=== PATIENT | male | born 1955 | race Caucasian/White ===

== ENCOUNTER 2017-01-27 09:13 | Inpatient (IN) | payer MEDICAID ==
[~2017-01-27] VITALS: Ht 172.7 cm; Wt 61.2 kg
--- NOTE | 2017-01-27 09:13 | NUR ---
PT BIBA TO BED 3 AT 0907
[2017-01-27 09:16] VITALS: BP 156/108
--- NOTE | 2017-01-27 09:20 | NUR ---
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 PT STATES . DENIES N/V/D; SKIN IS PINK/WARM/DRY; AAOX4 WITH EVEN AND STEADY GAIT; LUNGS CLEAR BL; HR EVEN AND REGULAR; PT DENIES ANY FEVER, CP, SOB, OR COUGH AT THIS TIME; PATIENT STATES PAIN OF 10/10 AT THIS TIME; VSS; PATIENT POSITIONED FOR COMFORT; HOB ELEVATED; BEDRAILS UP X2; BED DOWN. ER MD MADE AWARE OF PT STATUS.
[2017-01-27] MEDS ORDERED: AMLO10TA PO (09:29)
[2017-01-27] MEDS ORDERED: ACET-2619 PO (09:29)
[2017-01-27] MEDS ORDERED: ATOR20TA PO (09:29)
[2017-01-27] MEDS ORDERED: DOCU100C14 PO (09:29)
[2017-01-27] MEDS ORDERED: LOSA100T1 PO (09:29)
--- NOTE | 2017-01-27 10:20 | NUR ---
PT NOTIFIED OF NEED OF STRAIT CATHERIZATION, PT REQUESTED CUP OF WATER AND WILL TRY TO USE URINAL
--- NOTE | 2017-01-27 10:43 | NUR ---
PT REQUESTING MORE TIME FOR CATHERIZATION, HAS BEEN GIVEN 3 CUPS OF WATER, PT WILL TRY TO GIVE URINE SAMPLE ON URINAL GIVEN AT BEDSIDE
--- NOTE | 2017-01-27 11:00 | NUR ---
PT EXPLAINED CATHERIZATION PROCEDURE PER DR AWAD'S ORDER, PT STRAIGHT PROCEDURE WITH STERILE TECHNIQUE DONE WITH IRVIN SOLORIO'S ASSISTANCE AT BEDSIDE, 80CC OF URINE SAMPLE TAKEN, PROEDURE TOLERATED WELL, RESULTS GIVEN TO DR AWAD
--- NOTE | 2017-01-27 11:28 | NUR ---
DR AWAD AT BEDSIDE ASSESSING THE PT
[2017-01-27] MEDS ORDERED: NACL 0.9% 1,000 ML IV SCH (11:32)
[2017-01-27] MEDS ORDERED: MORPHINE SULFATE 4 MG/ML SYR IVP ONE (11:35)
[2017-01-27 11:51] LABS: HEMOGLOBIN 17.4 g/dL (12.0-18.0); MEAN CORPUSCULAR HEMOGLOBIN 32 pg (27-31); MEAN CORPUSCULAR HGB CONC 34 g/dL (33-37); MEAN CORPUSCULAR VOLUME 95 fL (80-94); PLATELET COUNT (AUTO) 140 K/uL (140-450); RED BLOOD CELL COUNT(AUTO) 5.45 MIL/uL (4.20-6.10); RED CELL DISTRIBUTION WIDTH 12.3 % (11.6-13.7); WHITE BLOOD COUNT (AUTO) 14.6 K/uL (4.8-10.8)
[2017-01-27 12:01] LABS: ANION GAP 16.9 (8-16); CALCIUM 8.8 mg/dL (8.5-10.1); CARBON DIOXIDE 24.3 mmol/L (21-32); CREATININE 1.1 mg/dL (0.6-1.3); POTASSIUM 4.2 mmol/L (3.5-5.1)
[2017-01-27 12:05] LABS: NEUTROPHILS % (MANUAL) 86 (43-65)
[2017-01-27 12:06] LABS: LYMPHOCYTES % (MANUAL) 7 % (20-46); MONOCYTES % (MANUAL) 7 % (5-12); PLATELET ESTIMATE ADEQUATE
[2017-01-27 12:07] LABS: ALBUMIN 4.1 g/dL (3.4-5.0); TOTAL BILIRUBIN 3.1 mg/dL (0.0-1.0); TOTAL PROTEIN, SERUM 7.5 g/dL (6.4-8.2)
--- NOTE | 2017-01-27 12:18 | NUR ---
PT TAKEN TO CT VIA GURGIFTY BY DEVELOPER EVANGELIST
--- NOTE | 2017-01-27 12:37 | NUR ---
BROUGHT BACK FROM CT, PLACED BACK ON MONITOR
[2017-01-27 13:24] LABS: APPEARANCE,URINE HAZY (CLEAR); BILIRUBIN,URINE 1+ (NEGATIVE); BLOOD, URINE 3+ (NEGATIVE); COLOR,URINE YELLOW (YELLOW); LEUKOCYTE ESTERASE ,URINE NEGATIVE (NEGATIVE); NITRITE, URINE NEGATIVE (NEGATIVE); PH,URINE 6.5 (5.0-9.0); PROTEIN,URINE 3+ (NEGATIVE); UGLUCOSE TRACE (NEGATIVE); UROBILINOGEN,URINE 0.2 EU/dL (0.2 - 1)
[2017-01-27 13:32] LABS: BACTERIA,URINE 2+ /HPF (None Seen); ICTOTEST NEGATIVE (NEGATIVE); RBC,URINE NONE SEEN /HPF (0-5); WBC,URINE 80-100 /HPF (0-5)
[2017-01-27 13:33] LABS: SQUAMOUS EPITHELIAL CELL,UR None Seen /LPF (0-3 (FEW))
[2017-01-27] MEDS ORDERED: ONDANSETRON 4 MG/2 ML VIAL IVP PRN (13:40)
[2017-01-27] MEDS ORDERED: ACETAMINOPHEN 325 MG TAB PO PRN (13:40)
--- NOTE | 2017-01-27 13:51 | NUR ---
Patient will be admitted to care of DR CHERY. Admited to TELE. Will go to room 122A. Belongings list completed. Report to MARIBEL SALDAÑA.
[2017-01-27 14:19] LABS: AMPHETAMINE, URINE NEG. ng/ml (NEG <=1000); BARBITURATE, URINE NEG. ng/ml (NEG <=200); BENZODIAZEPINE, URINE NEG. ng/mL (NEG <=200); CANNABINOID, URINE NEG. ng/mL (NEG <=50); COCAINE, URINE NEG. ng/mL (NEG <=300); OPIATE, URINE NEG. ng/mL (NEG <=2000); PHENCYCLIDINE SCREEN,URINE NEG. ng/mL (NEG <=25)
[2017-01-27] MEDS ORDERED: SODIUM PHOSPHATE 118 ML ENEM RC PRN ×2 (14:25)
[2017-01-27 14:32] LABS: INR 1.4 (0.8-1.2); PARTIAL THROMBOPLASTIN TIME 28.6 secs (22-35.6); PROTHROMBIN TIME 13.3 secs (10.8-13.4)
[2017-01-27 14:40] VITALS: BP 159/106
--- NOTE | 2017-01-27 14:40 | NUR ---
PT ADMITTED FROM ER AWAKE ALERT AND RESPONSIVE, [place] SPEAKING AND ABLE TO UNDERSTAND [place]. NO SIGNS OF ACUTE DISTRESS. SKIN IS WARM AND DRY. NO EPISODES OF ANY NAUSEA OR VOMITING. NO C/O ANY PAIN AT THIS TIME. NO DISCOMFORT. ALL NEEDS ATTENDED, SAFETY PRECAUTIONS MAINTAINED. ORIENTED TO HOSPITAL ENVIRONMENT. CALL LIGHT WITHIN REACH.
[2017-01-27 14:57] LABS: MAGNESIUM 1.8 mg/dL (1.8-2.4); PHOSPHORUS 3.1 mg/dL (2.5-4.9)
[2017-01-27] MEDS: NACL 0.9% 1,000 ML IV SCH ×2 (14:59→23:07)
--- NOTE | 2017-01-27 15:21 | NUR ---
ADMINISTERED FLEET ENEMA X2 AND SOAP SUDS ENEMA X1. WAS ABLE TO OBSERVE CLEAR FLUID BM FROM PT. DR. RON MADE AWARE.
[2017-01-27 15:34] LABS: FREE T4 (FREE THYROXINE) 1.14 ng/dL (0.76-1.46); THYROID STIMULATING HORMONE 0.58 uIU/mL (0.34-3.76)
[2017-01-27] MEDS: MORPHINE SULFATE 2 MG/ML SYR IVP PRN (15:46)
[2017-01-27] MEDS ORDERED: INFLUENZA VIRUS VACCINE QUAD 0.5 ML SYR IMVAC SCH (16:30)
[2017-01-27] MEDS ORDERED: PNEUMOCOCCAL VACCINE 23 MCG/0.5 ML VIAL IMVAC SCH (16:30)
--- NOTE | 2017-01-27 16:44 | NUR ---
PT CONSENTED FOR COLONOSCOPY TODAY BY DR. ROSARIO. WAS NOTIFIED BY MD SCHEDULED PROCEDURE IS AT 1700.
[2017-01-27] MEDS ORDERED: MIDAZOLAM 2 MG/2 ML VIAL ONE (16:52)
[2017-01-27] MEDS ORDERED: fentaNYL 0.05 MG/ML VIAL ONE (16:52)
--- NOTE | 2017-01-27 17:00 | NUR ---
PT WENT OFF UNIT FOR PROCEDURE WITH DR. ROSARIO IN OR. REPORT GIVEN TO LENCHO LÓPEZ AT OR. PT ALERT AND WITH NO SIGNS OF ACUTE DISTRESS.
[2017-01-27] MEDS ORDERED: MIDAZOLAM 2 MG/2 ML VIAL IVP ONE (18:00)
[2017-01-27] MEDS ORDERED: fentaNYL 0.05 MG/ML VIAL IVP ONE (18:00)
--- NOTE | 2017-01-27 18:15 | NUR ---
PT CAME BACK FROM PROCEDURE, S/P SIGMOIDOSCOPY, TO PERFORM COLONOSCOPY TOMORROW BY DR. ROSARIO ORDERED. PT RESTING WELL AWAKE AND RESPONSIVE, NO SIGNS OF ACUTE DISTRESS. NO C/O OF PAIN NO GI DISCOMFORT NOTED. CONTINUE TO MONITOR.
[2017-01-27] MEDS: AMPICILLIN/SULBACTAM 3 GM in NACL 0.9% 100 ML IV SCH ×2 (18:38→23:09)
--- NOTE | 2017-01-27 18:45 | NUR ---
PT AWAKE, RESPONSIVE, NO SIGNS OF ACUTE DISTRESS. WILL ENDORSE TO ONCOMING LEAD JAVA DEVELOPER ARCHITECT NURSE FOR CONTINUITY OF CARE.
--- NOTE | 2017-01-27 19:09 | NUR ---
RECEIVED PT FROM PIOTR RN AT PT BEDSIDE, FOR CONTINUITY OF CARE. PT NOTED STABLE. NO ACUTE DISTRESS. CALL LIGHT WITHIN REACH.
--- NOTE | 2017-01-27 19:35 | NUR ---
SHIFT ASSESSMENT DONE. PT IS ECUADOREAN SPEAKING, NOTED WITH SLIGHT MUMBLING SPEECH, ABLE TO VERBALIZE NEEDS AND FOLLOW COMMAND. IS A/O X3, NO S/S OF DISTRESS. DISCUSSED PLAN OF CARE WITH PT, VERBALIZED UNDERSTANDING. VITAL SIGNS ARE STABLE, PT ON ROOM AIR WITH OXYGEN SATURATION AT 96%. PT IS AFEBRILE. DENIES PAIN AT THIS TIME, NO N/V/D, NO CHEST PAIN, AND OR SOB. NO RESPIRATORY DISTRESS NOTED. 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 PT STATES HE ABLE TO SWALLOW WITH NO DIFFICULTY. IV ACCESS TO RT FOREARM #22G, PATENT AND INTACT. ALL OTHER SKIN INTACT. 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 PT LUNG SOUNDS ARE CLEAR. SAFETY PRECAUTIONS IMPLEMENTED. CALL LIGHT WITHIN REACH. WILL CONTINUE TO MONITOR PT.
[2017-01-27 20:00] VITALS: BP 122/84
[2017-01-27] MEDS: ATORVASTATIN 20 MG TAB PO SCH (21:08)
[2017-01-27] MEDS: DOCUSATE SODIUM 100 MG GELCAP PO SCH (21:09)
[2017-01-27] MEDS: LOSARTAN 50 MG TAB PO SCH (21:09)
--- NOTE | 2017-01-27 21:09 | NUR ---
PROVIDED PT WITH PM PO SCHEDULED MEDICATIONS, PT TOLERATED WELL. NO SWALLOWING IMPAIRMENT NOTED. CALL LIGHT WITHIN REACH. WILL CONTINUE TO MONITOR PT.
--- NOTE | 2017-01-27 21:23 | NUR ---
PT IV FOUND INFILTRATED, DISCONTINUED. IV CANNULA INTACT. WILL RESTART NEW IV ACCESS.
[2017-01-27] MEDS ORDERED: MAGNESIUM CITRATE 300 ML BTL PO SCH (22:00)
[2017-01-27] MEDS ORDERED: BISACODYL 5 MG TABEC PO SCH (22:00)
--- NOTE | 2017-01-27 23:00 | NUR ---
NEW IV STARTED TO RT WRIST #24G, PATENT AND INTACT.
--- NOTE | 2017-01-27 23:26 | NUR ---
PT VITAL SIGNS REMAIN STABLE, NO S/S OF ACUTE DISTRESS NOTED.
[2017-01-28] VITALS: BP 137/88
--- NOTE | 2017-01-28 00:43 | NUR ---
PT NOTED SLEEPING WELL, NO S/S OF DISTRESS.
--- NOTE | 2017-01-28 02:08 | NUR ---
PT NOTED SLEEPING, NO S/S OF DISTRESS. CALL LIGHT WITHIN REACH. NO BM NOTED.
[2017-01-28 04:00] VITALS: BP 146/86
[2017-01-28] MEDS ORDERED: MAGNESIUM CITRATE 300 ML BTL PO SCH (04:00)
[2017-01-28] MEDS: NACL 0.9% 1,000 ML IV SCH ×2 (04:00→20:17)
--- NOTE | 2017-01-28 04:00 | NUR ---
PT VITAL SIGNS STILL REMAIN STABLE, NO S/S OF ACUTE DISTRESS. CALL LIGHT WITHIN REACH.
[2017-01-28] MEDS: AMPICILLIN/SULBACTAM 3 GM in NACL 0.9% 100 ML IV SCH ×4 (05:06→23:18)
[2017-01-28 06:25] LABS: BASOPHILS # (AUTO) 0.2 K/uL (0.00-0.22); BASOPHILS % (AUTO) 2.1 % (0.0-2.0); EOSINOPHILS # (AUTO) 0.1 K/uL (0-0.4); EOSINOPHILS % (AUTO) 1.5 % (0.0-4.0); HEMATOCRIT 45.4 % (36-52); HEMOGLOBIN 15.5 g/dL (12.0-18.0); LYMPHOCYTES # (AUTO) 1.5 K/uL (2.0-11.5); LYMPHOCYTES % (AUTO) 17.8 % (20.5-51.1); MEAN CORPUSCULAR HEMOGLOBIN 33 pg (27-31); MEAN CORPUSCULAR HGB CONC 34 g/dL (33-37); MEAN CORPUSCULAR VOLUME 97 fL (80-94); MONOCYTES # (AUTO) 0.8 K/uL (0.8-1.0); MONOCYTES % (AUTO) 9.1 % (1.7-9.3); NEUTROPHILS # (AUTO) 5.8 K/uL (1.8-7.7); NEUTROPHILS % (AUTO) 69.5 % (42.2-75.2); PLATELET COUNT (AUTO) 89 K/uL (140-450); RED CELL DISTRIBUTION WIDTH 12.6 % (11.6-13.7); WHITE BLOOD COUNT (AUTO) 8.4 K/uL (4.8-10.8)
[2017-01-28 06:55] LABS: ANION GAP 10.3 (8-16); CALCIUM 7.8 mg/dL (8.5-10.1); CARBON DIOXIDE 28.1 mmol/L (21-32); CREATININE 0.9 mg/dL (0.6-1.3); POTASSIUM 3.4 mmol/L (3.5-5.1)
[2017-01-28] MEDS: MORPHINE SULFATE 2 MG/ML SYR IVP PRN ×2 (07:01→16:04)
[2017-01-28 07:02] LABS: CHOL/HDL RATIO 2.4 (1-4.5); MAGNESIUM 2.1 mg/dL (1.8-2.4); PHOSPHORUS 2.5 mg/dL (2.5-4.9)
--- NOTE | 2017-01-28 07:15 | NUR ---
ENDORSED PT TO ASHWIN RN FOR PT CONTINUITY OF CARE AT PT BEDSIDE. PT NOTED. STABLE NO DISTRESS.
--- NOTE | 2017-01-28 07:30 | NUR ---
RECEIVED REPORT FROM SEWER PIPE OFFBEARER RN. PT HAS NO S/S OF ACUTE CARDIAC/RESPIRATORY DISTRESS. SAFETY MEASURES IN PLACE, CALL LIGHT WITHIN REACH. WILL CONTINUE PLAN OF CARE AND CONTINUE TO MONITOR.
[2017-01-28 08:00] VITALS: BP 131/89
[2017-01-28] MEDS ORDERED: POTASSIUM CHLORIDE 10 MEQ TABER PO SCH (09:15)
--- NOTE | 2017-01-28 09:15 | NUR ---
PT HAS NO S/S OF ACUTE DISTRESS OR DISCOMFORT. PT IN STABLE CONDITION. PT TRANSFERRED VIA BED TO OR FOR COLONOSCOPY.
[2017-01-28] MEDS: fentaNYL 0.05 MG/ML VIAL ONE ×2 (09:31→09:44)
[2017-01-28] MEDS: MIDAZOLAM 2 MG/2 ML VIAL ONE ×2 (09:32→09:44)
[2017-01-28] MEDS ORDERED: LIDOCAINE 2% 100 MG/5 ML UJET TP ONE (09:32)
--- NOTE | 2017-01-28 09:46 | NUR ---
CM NOTE INITIAL REVIEW FAXED TO [facility] / FAX# [phone]
[2017-01-28] MEDS ORDERED: MIDAZOLAM 2 MG/2 ML VIAL IVP ONE (10:05)
[2017-01-28] MEDS ORDERED: fentaNYL 0.05 MG/ML VIAL IVP ONE (10:05)
--- NOTE | 2017-01-28 10:30 | NUR ---
PT RETURNED FROM OR. PT HAS NO S/S OF ACUTE DISTRESS OR DISCOMFORT. PT TOLERATED AM MEDS WELL. CALL LIGHT WITHIN REACH, WILL CONTINUE TO MONITOR.
[2017-01-28] MEDS: LOSARTAN 50 MG TAB PO SCH ×2 (10:40→20:18)
[2017-01-28] MEDS: LACTOBACILLUS RHAMNOSUS GG 1 EACH CAP PO SCH (10:40)
[2017-01-28] MEDS: DOCUSATE SODIUM 100 MG GELCAP PO SCH ×2 (10:40→20:18)
[2017-01-28] MEDS: amLODIPine 5 MG TAB PO SCH (10:40)
[2017-01-28] MEDS: CALCIUM CARBONATE 500 MG TAB PO SCH ×2 (10:45→20:18)
[2017-01-28 12:00] VITALS: BP 128/92
[2017-01-28] MEDS ORDERED: LACTULOSE 20 GM/30 ML UDC PO SCH (12:00)
--- NOTE | 2017-01-28 12:00 | NUR ---
PT SEEN BY DR SAUNDERS AND PT AGREES TO SURGERY TOMORROW, OBTAINED CONSENT. DR SAUNDERS MADE AWARE OF PT REFUSING ANY MORE BLOOD DRAWS, UNABLE TO OBTAIN TYPE AND CROSS.
--- NOTE | 2017-01-28 14:30 | NUR ---
PT TRANSFERRED TO RADIOLOGY FOR BARIUM ENEMA. PT EXPRESSED HIS CONCERNS AND REFUSAL OF BLOOD DRAWS. REASSURED PT THERE WILL BE NO BLOOD DRAWS AND EXPLAINED THE PROCEDURE, PT VERBALIZED UNDERSTANDING.
[2017-01-28 16:00] VITALS: BP 134/78
--- NOTE | 2017-01-28 16:00 | NUR ---
PT RETURNED FROM RADIOLOGY. PT HAS NO S/S OF DISTRESS. PT STATES HE IS IN PAIN, WILL MEDICATE WITH MORPHINE. PT CHANGED BY WET CHEMISTRY ANALYST. CALL LIGHT WITHIN REACH, WILL CONTINUE TO MONITOR.
--- NOTE | 2017-01-28 19:01 | NUR ---
RECEIVED CHANGE OF SHIFT REPORT FROM ASHWIN RN FOR PT CONTINUITY OF CARE AT PT BEDSIDE, PT NOTED AWAKE WATCHING TV. NO S/S OF ACUTE DISTRESS. CALL LIGHT WITHIN REACH.
--- NOTE | 2017-01-28 19:03 | NUR ---
ENDORSED REPORT TO WATER FILTRATION TECHNICIAN RN. PT HAS NO S/S OF ACUTE DISTRESS OR DISCOMFORT. PT IN STABLE CONDITION.
--- NOTE | 2017-01-28 19:11 | NUR ---
SHIFT ASSESSMENT DONE AT THIS TIME. PT IS OCCITAN SPEAKING, ABLE TO VERBALIZE NEEDS AND FOLLOW COMMAND. IS A/O X3, NO S/S OF DISTRESS. DISCUSSED PLAN OF CARE WITH PT, VERBALIZED UNDERSTANDING. VITAL SIGNS ARE STABLE, ON ROOM AIR WITH OXYGEN SATURATION AT 97%, AFEBRILE. DENIES PAIN, NO N/V/D, NO CHEST PAIN, AND OR SOB. NO RESPIRATORY DISTRESS NOTED. NOTED PT TO HAVE OLD TRACHEOSTOMY STOMA IN NECK, OLAMIDE, NO S/S OF INFECTION. IV ACCESS TO RT WRIST #24G, PATENT AND INTACT. ALL OTHER SKIN INTACT. 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 PT LUNG SOUNDS ARE CLEAR. SAFETY PRECAUTIONS IMPLEMENTED. CALL LIGHT WITHIN REACH. WILL CONTINUE TO MONITOR PT.
[2017-01-28 20:00] VITALS: BP 144/96
--- NOTE | 2017-01-28 20:17 | NUR ---
PROVIDED PT WITH PO MEDICATION AT THIS TIME, TOLERATED WELL. NO S/S OF DISTRESS. CALL LIGHT WITHIN REACH. WILL CONTINUE TO MONITOR.
[2017-01-28] MEDS: LACTULOSE 20 GM/30 ML UDC PO SCH (20:18)
[2017-01-28] MEDS: ATORVASTATIN 20 MG TAB PO SCH (20:18)
--- NOTE | 2017-01-28 22:52 | NUR ---
PT NOTED SLEEPING WELL, NO DISTRESS. WATCHING TV. CALL LIGHT WITHIN REACH.
[2017-01-29] VITALS: BP 131/95
--- NOTE | 2017-01-29 02:09 | NUR ---
PT IS SLEEPING AT THIS TIME, NO S/S OF ACUTE DISTRESS NOTED. CALL LIGHT WITHIN REACH.
--- NOTE | 2017-01-29 03:58 | NUR ---
VITAL SIGNS REMAINS STABLE, NO S/S OF DISTRESS. CALL LIGHT WITHIN REACH.
[2017-01-29 04:00] VITALS: BP 153/90
[2017-01-29] MEDS: AMPICILLIN/SULBACTAM 3 GM in NACL 0.9% 100 ML IV SCH ×4 (05:02→23:31)
[2017-01-29] MEDS: NACL 0.9% 1,000 ML IV SCH ×2 (05:36→15:36)
--- NOTE | 2017-01-29 06:01 | NUR ---
PT SLEEPING, NO DISTRESS. CALL LIGHT WITHIN REACH.
[2017-01-29 06:48] LABS: ALBUMIN 3.4 g/dL (3.4-5.0); ANION GAP 11.4 (8-16); CALCIUM 8.1 mg/dL (8.5-10.1); CARBON DIOXIDE 27.2 mmol/L (21-32); CREATININE 0.9 mg/dL (0.6-1.3); MAGNESIUM 2.4 mg/dL (1.8-2.4); PHOSPHORUS 2.2 mg/dL (2.5-4.9); POTASSIUM 4.6 mmol/L (3.5-5.1); TOTAL BILIRUBIN 3.2 mg/dL (0.0-1.0); TOTAL PROTEIN, SERUM 6.2 g/dL (6.4-8.2)
[2017-01-29 07:07] LABS: BASOPHILS # (AUTO) 0.3 K/uL (0.00-0.22); BASOPHILS % (AUTO) 4.1 % (0.0-2.0); EOSINOPHILS # (AUTO) 0.2 K/uL (0-0.4); EOSINOPHILS % (AUTO) 2.5 % (0.0-4.0); HEMATOCRIT 48.6 % (36-52); HEMOGLOBIN 16.1 g/dL (12.0-18.0); LYMPHOCYTES # (AUTO) 1.4 K/uL (2.0-11.5); LYMPHOCYTES % (AUTO) 22.3 % (20.5-51.1); MEAN CORPUSCULAR HEMOGLOBIN 32 pg (27-31); MEAN CORPUSCULAR HGB CONC 33 g/dL (33-37); MEAN CORPUSCULAR VOLUME 96 fL (80-94); MONOCYTES # (AUTO) 0.6 K/uL (0.8-1.0); MONOCYTES % (AUTO) 10.2 % (1.7-9.3); NEUTROPHILS # (AUTO) 3.8 K/uL (1.8-7.7); NEUTROPHILS % (AUTO) 60.9 % (42.2-75.2); PLATELET COUNT (AUTO) 67 K/uL (140-450); RED BLOOD CELL COUNT(AUTO) 5.05 MIL/uL (4.20-6.10); RED CELL DISTRIBUTION WIDTH 12.4 % (11.6-13.7); WHITE BLOOD COUNT (AUTO) 6.4 K/uL (4.8-10.8)
--- NOTE | 2017-01-29 07:21 | NUR ---
ENDORSED PT TO ALANNA Sousa RN AT PT BEDSIDE FOR CONTINUITY OF CARE. PT NOTED STABLE, NO DISTRESS NOTED.
--- NOTE | 2017-01-29 07:22 | NUR ---
RECEIVED REPORT FROM MARIBEL ABDUL. PT IS A/OX4, SLURRED SPEECH, PT HAS HX OF CVA, PT HAS TRACH STOMA, HEALING, PT ABLE TO SWALLOW, NO S/S OF RESPIRATORY DISTRESS OR DISCOMFORT NOTED, MANOJ HAND AND FEET ARE CONTRACTED, IV RT HAND, PATENT, INTACT, INFUSING WELL. FALL/SAFETY PRECAUTIONS IN PLACE. DISCUSSED PLAN OF CARE WITH PT, PT VERBALIZED UNDERSTANDING, ALL NEEDS ARE MET AT THIS TIME, CALL LIGHT WITHIN REACH, WILL CONTINUE TO MONITOR.
[2017-01-29 08:00] VITALS: BP 151/87
--- NOTE | 2017-01-29 08:11 | NUR ---
PATIENT HAS BEEN SCREENED AND CATEGORIZED MODERATE NUTRITION RISK. PATIENT WILL BE SEEN WITHIN 3-5 DAYS OF ADMISSION. 01/30/17-02/01/[address]
[2017-01-29] MEDS: CALCIUM CARBONATE 500 MG TAB PO SCH ×2 (08:41→20:48)
[2017-01-29] MEDS: LACTOBACILLUS RHAMNOSUS GG 1 EACH CAP PO SCH (08:42)
[2017-01-29] MEDS: LOSARTAN 50 MG TAB PO SCH ×2 (08:42→20:49)
[2017-01-29] MEDS: DOCUSATE SODIUM 100 MG GELCAP PO SCH ×2 (08:42→20:48)
[2017-01-29] MEDS: amLODIPine 5 MG TAB PO SCH (08:43)
[2017-01-29] MEDS: LACTULOSE 20 GM/30 ML UDC PO SCH ×2 (08:44→20:48)
--- NOTE | 2017-01-29 08:44 | NUR ---
DUE MEDICATIONS GIVEN. HEPARIN WAS HELD, PLT 67. PT TOLERATED WELL. NO S/S OF RESPIRATORY DISTRESS OR DISCOMFORT NOTED. CALL LIGHT WITHIN REACH, WILL CONTINUE TO MONITOR.
--- NOTE | 2017-01-29 09:30 | NUR ---
CM NOTE SPOKE W/ OSIEL FROM [facility] ([phone], OPT 1, 1). CM HAS NOT BEEN NAMED AND WILL BE DETERMINED BY THIS PM. PROVIDED LIST OF CONTRACTED FACILITIES: - JACOBY FRANK - LORRIE YUEN - FERNANDO BAILEY. - [facility]
--- NOTE | 2017-01-29 10:36 | NUR ---
CM NOTE: SNF PLACEMENT INQUIRIES PER CHANTELL FROM [facility] (TEL NO. [phone]), THEY WILL REVIEW PATIENT'S INFO. SENT PACKET TO FAX # [phone]. PER PAPITO FROM [place], NO BEDS AVAILABLE. PER BOO FROM [facility], NO BEDS AVAILABLE. PER NORMA FROM [place], ONLY FEMALE BEDS AVAILABLE. PER CORA FROM [facility], THEY ARE NOT CONTRACTED WITH [facility]/ [facility]. PER KALYANI FROM [facility] (TEL NO. [phone]), THEY WILL REVIEW PATIENT'S INFO. SENT PACKET TO FAX # [phone]. PER FROM [facility] (TEL NO. [phone]), THEY WILL REVIEW PATIENT'S INFO. SENT PACKET TO FAX # [phone].
--- NOTE | 2017-01-29 11:05 | NUR ---
PT RESTING BED WATCHING TV, NO S/S OF RESPIRATORY DISTRESS OR DISCOMFORT NOTED. CALL LIGHT WITHIN REACH, WILL CONTINUE TO MONITOR.
[2017-01-29 12:00] VITALS: BP 134/88
--- NOTE | 2017-01-29 13:29 | NUR ---
CM NOTE INITIAL REVIEW FAXED TO [facility] (FAX# [phone], C: [phone], OPT 2) AND [facility] (FAX# [phone], C: [phone], OPT 1, 1)
--- NOTE | 2017-01-29 14:10 | NUR ---
PT LEFT UNIT TO GO TO SURGERY. PT LEFT IN STABLE CONDITION.
--- NOTE | 2017-01-29 14:21 | NUR ---
SS NOTE: BHAVNA SMITH FROM [facility] ([phone]), THEY ARE CONSIDERING PT FOR THEIR [facility] BUT THEIR REP, ASHWIN WILL COME SEE PT BEDSIDE TOMORROW MORNING TO EVALUATE PT.
[2017-01-29] MEDS ORDERED: BUPIVACAINE-MPF/EPI 0.25% 30 ML VIAL INJ ONE (14:48)
[2017-01-29] MEDS ORDERED: SUCCINYLCHOLINE CHLORIDE 200 MG/10 ML VIAL IVP ONE (14:50)
[2017-01-29] MEDS ORDERED: PROPOFOL 200 MG/20 ML VIAL IV ONE (14:50)
[2017-01-29] MEDS ORDERED: ROCURONIUM 50 MG/5 ML VIAL IV ONE (14:50)
[2017-01-29] MEDS ORDERED: ONDANSETRON 4 MG/2 ML VIAL ONE (14:50)
[2017-01-29] MEDS ORDERED: DESFLURANE 240 ML BTL INH ONE (14:50)
[2017-01-29] MEDS ORDERED: DEXAMETHASONE 4 MG/ML VIAL ONE (14:50)
[2017-01-29] MEDS ORDERED: fentaNYL 0.05 MG/ML VIAL ONE ×2 (14:51→15:25)
[2017-01-29] MEDS ORDERED: ONDANSETRON 4 MG/2 ML VIAL IVP PRN (15:30)
[2017-01-29] MEDS ORDERED: HYDROmorphone 1 MG/ML AMP IVP PRN (15:30)
[2017-01-29] MEDS: DEXT 5% / NACL 0.45% 1,000 ML IV SCH ×2 (17:10→18:44)
[2017-01-29] MEDS: HYDROmorphone PFS 2 MG/ML SYR ONE ×4 (17:30→18:00)
[2017-01-29 18:40] VITALS: BP 161/91
--- NOTE | 2017-01-29 18:40 | NUR ---
PT IS BACK FROM OR PROCEDURE, RECEIVED REPORT FROM MARIBEL HOOKER. PT COMPLAINS OF A 9/10 ABDOMINAL PAIN, WILL MEDICATE, VITALS STABLE, DRESSING WITH SANGUINEUS DRAINAGE NOTED, INTACT, PER MARIBEL HOOKER DO NOT REMOVE DRESSING ONLY RE ENFORCE WITH 4X4 GAUZE, PT RECEIVING SECOND UNIT OF PLATELETS, ORIENTED PT IN THE ROOM, CALL LIGHT WITHIN REACH, WILL CONTINUE TO MONITOR.
[2017-01-29] MEDS: MORPHINE SULFATE 2 MG/ML SYR IVP PRN ×2 (18:43→21:57)
--- NOTE | 2017-01-29 19:13 | NUR ---
ENDORSED PT TO MARIBEL FUENTES. FOR CONTINUITY OF CARE. PT STABLE AT THIS TIME.
--- NOTE | 2017-01-29 19:15 | NUR ---
RECEIVED BEDSIDE REPORT FROM SAMIA LÓPEZ AND RADHA LÓPEZ. PATIENT IS ALERT, AWAKE, AND RESTING IN BED. NO SIGNS OF RESPIRATORY DISTRESS OR SOB NOTED. THERE IS AN OLD TRACH STOMA NOTED. BILATERAL HANDS ARE CONTRACTED WELL BLE. BREATH SOUNDS ARE CLEAR AND BOWEL SOUNDS ARE ACTIVE. THERE IS A #22 IN THE LEFT HAND RECEIVING PLATELETS AND THERE IS A #20 IN THE RIGHT FOREARM RECEIVING UNASYN ABX AT 100 ML/HR. BOTH SITES ARE DRY, INTACT, AND ASYMPTOMATIC. PATIENT IS S/P SURGERY FOR DX OF SIGMOID VOLVULUS. ABDOMEN IS COVERED WITH GAUZE DRESSING AND SECURED WITH TEGADERM DRESSING. SITE IS DRY AND INTACT. THERE IS MINIMAL SANGUINOUS DRAINAGE NOTED ON THE SURGERY SITE. SCDS ARE IN PLACE FOR VTE PROPHYLAXIS. THERE IS A MACIAS CATHETER DRAINING TO GRAVITY WITH SMALL AMOUNT OF CLEAR YELLOW URINE NOTED. VITALS ARE WNL. HOB AT 30 DEGREES WITH BED IN LOW POSITION. WILL CONTINUE TO MONITOR PATIENT.
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
[2017-01-29 20:00] VITALS: BP 152/90
[2017-01-29] MEDS: ATORVASTATIN 20 MG TAB PO SCH (20:48)
--- NOTE | 2017-01-29 20:48 | NUR ---
PATIENT ASLEEP IN BED, BUT CAN BE AROUSED BY NAME. SCHEDULED MEDICATIONS GIVEN. TOLERATED WELL. NO SIGNS OF SOB OR RESPIRATORY DISTRESS NOTED. CALL LIGHT WITHIN REACH. CONTINUE TO MONITOR.
--- NOTE | 2017-01-29 23:33 | NUR ---
PATIENT ASLEEP IN BED. NO SIGNS OF DISTRESS OR DISCOMFORT NOTED. CALL LIGHT WITHIN REACH. CONTINUE TO MONITOR PATIENT.
[2017-01-30] VITALS: BP 136/84
--- NOTE | 2017-01-30 02:08 | NUR ---
ROUNDED ON PATIENT. PATIENT SLEEPING IN BED. BREATHING IS EVEN AND UNLABORED. CALL LIGHT WITHIN PATIENT'S REACH. CONTINUE TO MONITOR PATIENT.
[2017-01-30 04:00] VITALS: BP 151/86
--- NOTE | 2017-01-30 05:10 | NUR ---
PER SOLUTION MIXER ASAF, PATIENT REFUSED SCHEDULED LAB DRAWS. WILL ENDORSE TO AM SHIFT.
--- NOTE | 2017-01-30 05:25 | NUR ---
PATIENT RESTING IN BED. VITALS ARE WNL. PATIENT REPORTS PAIN 9/10. WILL MEDICATE PER DOCTOR'S ORDERS. CONTINUE TO MONITOR PATIENT.
[2017-01-30] MEDS: MORPHINE SULFATE 2 MG/ML SYR IVP PRN ×3 (05:26→17:00)
[2017-01-30] MEDS: AMPICILLIN/SULBACTAM 3 GM in NACL 0.9% 100 ML IV SCH ×3 (05:29→17:00)
--- NOTE | 2017-01-30 06:58 | NUR ---
PATIENT RESTING IN BED AND IS STABLE. ALL NEEDS ATTENDED TO DURING SHIFT. ENDORSED CONTINUITY OF CARE TO RADHA LÓPEZ.
--- NOTE | 2017-01-30 07:05 | NUR ---
RECEIVED REPORT FROM MARIBEL FUENTES. PT IS A/OX4, PT HAS AN IV ON LT HAND, FLUSHING WELL AND IV ON RT FA, PATENT, INTACT, INFUSING WELL, MACIAS CATHETER IN PLACE, MID ABDOMINAL WOUND DRESSING, INTACT, NO S/S OF RESPIRATORY DISTRESS OR DISCOMFORT NOTED, FALL/SAFETY PRECAUTIONS IN PLACE, DISCUSSED PLAN OF CARE WITH PT, PT VERBALIZED UNDERSTANDING, CALL LIGHT WITHIN REACH, WILL CONTINUE TO MONITOR.
[2017-01-30 08:00] VITALS: BP 157/88
[2017-01-30] MEDS: DOCUSATE SODIUM 100 MG GELCAP PO SCH ×2 (08:08→20:59)
[2017-01-30] MEDS: LACTOBACILLUS RHAMNOSUS GG 1 EACH CAP PO SCH (08:08)
[2017-01-30] MEDS: LACTULOSE 20 GM/30 ML UDC PO SCH ×2 (08:08→20:59)
[2017-01-30] MEDS: LOSARTAN 50 MG TAB PO SCH ×2 (08:09→21:00)
[2017-01-30] MEDS: amLODIPine 5 MG TAB PO SCH (08:09)
[2017-01-30] MEDS: CALCIUM CARBONATE 500 MG TAB PO SCH ×2 (08:09→21:00)
--- NOTE | 2017-01-30 09:45 | NUR ---
DR. SAUNDERS IS IN TO SEE THE PT AND CHANGE THE DRESSING. PT TOLERATED WELL.
[2017-01-30] MEDS: POTASSIUM CHL 20 MEQ/D5-1/2NS 1,000 ML IV SCH ×2 (09:57→21:00)
[2017-01-30 10:28] LABS: HEMOGLOBIN 16.3 g/dL (12.0-18.0); MEAN CORPUSCULAR HEMOGLOBIN 32 pg (27-31); MEAN CORPUSCULAR HGB CONC 34 g/dL (33-37); MEAN CORPUSCULAR VOLUME 94 fL (80-94); PLATELET COUNT (AUTO) 156 K/uL (140-450); RED CELL DISTRIBUTION WIDTH 12.3 % (11.6-13.7); WHITE BLOOD COUNT (AUTO) 14.7 K/uL (4.8-10.8)
[2017-01-30 10:39] LABS: BAND % (MANUAL) 2 % (0-8); BASOPHILS % (MANUAL) 1 % (0-2); EOSINOPHILS % (MANUAL) 1 % (0-4); LYMPHOCYTES % (MANUAL) 4 % (20-46); MONOCYTES % (MANUAL) 8 % (5-12); NEUTROPHILS % (MANUAL) 84 (43-65)
[2017-01-30 10:40] LABS: PLATELET ESTIMATE ADEQUATE
[2017-01-30 10:42] LABS: ANION GAP 9.3 (8-16); CALCIUM 8.5 mg/dL (8.5-10.1); CARBON DIOXIDE 29.2 mmol/L (21-32); POTASSIUM 3.5 mmol/L (3.5-5.1)
[2017-01-30 12:00] VITALS: BP 154/88
--- NOTE | 2017-01-30 13:34 | NUR ---
PT IS SITTING IN BED USING IS, NO S/S OF RESPIRATORY DISTRESS OR DISCOMFORT NOTED, CALL LIGHT WITHIN REACH, WILL CONTINUE TO MONITOR.
--- NOTE | 2017-01-30 13:58 | NUR ---
FAXED CONCURRENT REVIEW TO [facility] [phone] FAXED CONCURRENT REVIEW TO [facility] [phone] PHONE [phone]
--- NOTE | 2017-01-30 15:22 | NUR ---
PT IS WATCHING TV, NO S/S OF RESPIRATORY DISTRESS OR DISCOMFORT NOTED, ALL NEEDS MET AT THIS TIME, CALL LIGHT WITHIN REACH, WILL CONTINUE TO MONITOR.
[2017-01-30 16:00] VITALS: BP 125/80
--- NOTE | 2017-01-30 17:57 | NUR ---
DINNER SERVED, PT HAS GOOD APPETITE, ALL NEEDS MET AT THIS TIME, CALL LIGHT WITHIN REACH, WILL CONTINUE TO MONITOR.
--- NOTE | 2017-01-30 19:05 | NUR ---
RECEIVED REPORT FROM MARIBEL GARCIA/SAMIA AT BEDSIDE. INITIAL ASSESSMENT COMPLETED. PT AAO4. PT BEDBOUND. PT HAS HANDS AND FEET CONTRACTED. PT HAS A MIDLINE ABDOMINAL INCISION S/P EXPLORATORY LAP COVERED WITH DRESSING DRY AND INTACT. PT HAS A MACIAS CATHETER, SCDS. PT HAS IV TO LEFT HAND G 22 SL AND RIGHT FOREARM G 20; BOTH ASYMPTOMATIC, PATENT AND INTACT. EXPLAINED PLAN OF CARE TO PT AND ORIENTED HIM TO ROOM AND SURROUNDINGS AND USE OF CALL LIGHT. SAFETY/FALL RISK MEASURES IN PLACE. WILL CONTINUE TO MONITOR PT.
--- NOTE | 2017-01-30 19:10 | NUR ---
ENDORSED PT TO MARIBEL WEBSTER, FOR CONTINUITY OF CARE. PT STABLE AT THIS TIME.
[2017-01-30 20:00] VITALS: BP 142/96
[2017-01-30] MEDS: ATORVASTATIN 20 MG TAB PO SCH (20:59)
--- NOTE | 2017-01-30 21:05 | NUR ---
PT TOLERATED 2100 MEDS WELL, WILL CONTINUE TO MONITOR PT.
[2017-01-31] VITALS: BP 139/88
[2017-01-31] MEDS: AMPICILLIN/SULBACTAM 3 GM in NACL 0.9% 100 ML IV SCH ×4 (00:06→17:10)
--- NOTE | 2017-01-31 00:09 | NUR ---
0000 UNASYN INFUSING AT THIS TIME, PT STABLE. WILL CONTINUE TO MONITOR PT.
--- NOTE | 2017-01-31 01:59 | NUR ---
PT STABLE, SLEEPING AT THIS TIME. NO SIGNS OF DISTRESS/DISCOMFORT NOTED. CALL LIGHT WITHIN REACH.
[2017-01-31 04:00] VITALS: BP 147/92
--- NOTE | 2017-01-31 04:37 | NUR ---
PT REQUESTING TO HAVE ANOTHER BLANKET AND DRINKING WATER. ALL NEEDS MET AT THIS TIME. WILL CONTINUE TO MONITOR PT.
--- NOTE | 2017-01-31 05:09 | NUR ---
0600 UNASYN INFUSING NOW. PT STABLE, WILL CONTINUE TO MONITOR PT.
--- NOTE | 2017-01-31 05:26 | NUR ---
PT REFUSED TO BE TURNED/REPOSITIONED AND LINEN CHANGED. HONEY AND SONYA CNAS WITNESSED. WILL CONTINUE TO MONITOR PT.
--- NOTE | 2017-01-31 05:35 | NUR ---
PT REFUSED TO HAVE BLOOD DRAWN BY VAN HELPER. EXPLAINED TO PT THE IMPORTANCE OF THE LAB WORK, BUT PT STILL REFUSES. WILL CONTINUE TO MONITOR PT.
[2017-01-31] MEDS: POTASSIUM CHL 20 MEQ/D5-1/2NS 1,000 ML IV SCH (06:28)
--- NOTE | 2017-01-31 07:00 | NUR ---
ENDORSED PLAN OF CARE TO MARIBEL ROTH FOR CONTINUITY OF CARE. PT IN STABLE CONDITION.
--- NOTE | 2017-01-31 07:00 | NUR ---
ASSUMED CONTINUITY OF CARE. NO SIGNS AND SYMPTOMS OF ACUTE DISTRESS NOTICED. INITIAL ASSESSMENT DONE. KEEP COMFORTABLE ON BED. EXPLAINED DIAGNOSIS, PLAN OF CARE, PAIN MANAGEMENT TEACHING, INCISION CARE, USE OF CALL LIGHT/BED/TV/BATHROOM. VERBALIZED UNDERSTANDING. FALL PRECAUTION APPLIED. CALL LIGHT WITHIN REACH.
--- NOTE | 2017-01-31 07:01 | NUR ---
Patient's Plan of Care was discussed and reviewed with KITCHEN HELP HANDYMAN: IRA Ibrahim
[2017-01-31 08:00] VITALS: BP 143/89
[2017-01-31] MEDS: LACTULOSE 20 GM/30 ML UDC PO SCH ×2 (09:10→21:24)
[2017-01-31] MEDS: DOCUSATE SODIUM 100 MG GELCAP PO SCH ×2 (09:11→21:25)
[2017-01-31] MEDS: amLODIPine 5 MG TAB PO SCH (09:13)
[2017-01-31] MEDS: CALCIUM CARBONATE 500 MG TAB PO SCH ×2 (09:13→21:26)
[2017-01-31] MEDS: LOSARTAN 50 MG TAB PO SCH ×2 (09:13→21:25)
[2017-01-31] MEDS: LACTOBACILLUS RHAMNOSUS GG 1 EACH CAP PO SCH (09:13)
[2017-01-31 10:45] LABS: HEMATOCRIT 48.6 % (36-52); HEMOGLOBIN 16.1 g/dL (12.0-18.0); MEAN CORPUSCULAR HEMOGLOBIN 32 pg (27-31); MEAN CORPUSCULAR HGB CONC 33 g/dL (33-37); MEAN CORPUSCULAR VOLUME 95 fL (80-94); PLATELET COUNT (AUTO) 131 K/uL (140-450); RED BLOOD CELL COUNT(AUTO) 5.11 MIL/uL (4.20-6.10); RED CELL DISTRIBUTION WIDTH 12.4 % (11.6-13.7); WHITE BLOOD COUNT (AUTO) 10.2 K/uL (4.8-10.8)
[2017-01-31 10:59] LABS: ANION GAP 12.1 (8-16); CALCIUM 8.3 mg/dL (8.5-10.1); CARBON DIOXIDE 21.7 mmol/L (21-32); CREATININE 0.9 mg/dL (0.6-1.3); POTASSIUM 3.8 mmol/L (3.5-5.1)
[2017-01-31 11:02] LABS: BAND % (MANUAL) 0 % (0-8); BASOPHILS % (MANUAL) 0 % (0-2); EOSINOPHILS % (MANUAL) 0 % (0-4); LYMPHOCYTES % (MANUAL) 14 % (20-46); MONOCYTES % (MANUAL) 5 % (5-12); NEUTROPHILS % (MANUAL) 81 (43-65); PLATELET ESTIMATE SLIGHTLY DECREASED
--- NOTE | 2017-01-31 11:30 | NUR ---
DR. SAUNDERS CAME, SEEN PT., REMOVED PT. ABD DRESSING AND LEAVE INCISION OPEN TO AIR. DR. SAUNDERS SPOKE TO DR. COOK AND GAVE ADDITIONAL ORDERS.
[2017-01-31 12:00] VITALS: BP 142/93
[2017-01-31] MEDS: MORPHINE SULFATE 2 MG/ML SYR IVP PRN (12:54)
--- NOTE | 2017-01-31 15:15 | NUR ---
D/C MACIAS CATHETER PER MD ORDER. PT. TOLERATED WELL. NO C/O PAIN.
[2017-01-31 16:00] VITALS: BP 149/90
--- NOTE | 2017-01-31 19:07 | NUR ---
BEDSIDE REPORT GIVEN TO LUAN ALFONSO -MARIBEL. IN STABLE CONDITION.
--- NOTE | 2017-01-31 19:30 | NUR ---
RECEIVED REPORT FROM ABIDA BAGGER MEAT AT BEDSIDE, PATIENT RESTING IN BED, AAOX4, ON ROOM AIR, NO SOB OR SIGN OF DISTRESS AT THIS TIME. PATIENT IS BEDBOUND, NONAMBULATORY. NOTED PATIENT HAS OLD TRACH STOMA, PATIENT HAS MILD UPPER AND LOWER EXTREMITY CONTRACTIONS FROM HX OF CVA, ALSO LEFT SIDED WEAKNESS. WHEN PATIENT SPEAKS, SLURRS WORDS. PATIENT IS S/P EXP LAP ON 01/29 WITH MIDLINE ABDOMINAL INCISION WITH RAMIRO PRESENT, NO DRAINAGE NOTED. DISCUSSED PLAN OF CARE WITH PATIENT, PATIENT VERBALIZED UNDERSTANDING, CALL LIGHT WITHIN REACH. SAFETY MEASURES CHECKED, WILL CONTINUE TO MONITOR.
[2017-01-31] MEDS: ATORVASTATIN 20 MG TAB PO SCH (21:24)
[2017-01-31] MEDS: HYDROcodone/APAP 5/325 MG 1 TAB TAB PO PRN (21:25)
--- NOTE | 2017-01-31 21:29 | NUR ---
PM MEDS ADMINISTERED, PATIENT TOLERATED WELL, CALL LIGHT WITHIN REACH. WILL CONTINUE TO MONITOR
--- NOTE | 2017-01-31 23:00 | NUR ---
PATIENT SLEEPING, NO SOB OR SIGN OF DISTRESS AT THIS TIME, CALL LIGHT WITHIN REACH. WILL CONTINUE TO MONITOR.
[2017-02-01] VITALS: BP 132/87
--- NOTE | 2017-02-01 00:10 | NUR ---
PATIENT UP RESTING IN BED, NO SIGN OF DISTRESS, VITAL SIGNS STABLE, CALL LIGHT WITHIN REACH. WILL CONTINUE TO MONITOR.
[2017-02-01] MEDS: AMPICILLIN/SULBACTAM 3 GM in NACL 0.9% 100 ML IV SCH ×5 (00:32→23:22)
[2017-02-01] MEDS: MORPHINE SULFATE 2 MG/ML SYR IVP PRN ×4 (01:17→23:22)
--- NOTE | 2017-02-01 02:50 | NUR ---
PATIENT SLEEPING, NO SOB OR SIGN OF DISTRESS AT THIS TIME, CALL LIGHT WITHIN REACH. WILL CONTINUE TO MONITOR.
--- NOTE | 2017-02-01 05:33 | NUR ---
PATIENT RESTING IN BED, NO SOB OR SIGN OF DISTRESS AT THIS TIME, CALL LIGHT WITHIN REACH. WILL CONTINUE TO MONITOR.
--- NOTE | 2017-02-01 07:21 | NUR ---
ENDORSED PATIENT TO DAYSHIFT RN AT BEDSIDE, PATIENT IN STABLE CONDITION.
--- NOTE | 2017-02-01 07:22 | NUR ---
PT ALERT AND ORIENTED X4, HUNGARIAN SPEAKING. NO SIGNS OF ACUTE DISTRESS. SKIN IS WARM AND DRY. S/P EXPLORE LAP. NOTED SURGICAL RAMIRO ON MIDLINE ABDOMINAL AREA. NO REDNESS, BLEEDING OR DISCHARGE NOTED. NO C/O ANY BOWEL OR BLADDER DISCOMFORT. DENIES OF ANY PAIN OR DISCOMFORT. ALL NEEDS ATTENDED, SAFETY PRECAUTIONS MAINTAINED. CALL LIGHT WITHIN REACH.
--- NOTE | 2017-02-01 08:36 | NUR ---
PT REFUSED V/S AND AM MEDS TO BE TAKEN, RISKS AND BENEFITS EXPLAINED. WILL NOTIFY .
[2017-02-01] MEDS: amLODIPine 5 MG TAB PO SCH (08:40)
[2017-02-01] MEDS: LOSARTAN 50 MG TAB PO SCH ×2 (08:40→20:19)
[2017-02-01] MEDS: LACTOBACILLUS RHAMNOSUS GG 1 EACH CAP PO SCH (08:40)
[2017-02-01] MEDS: DOCUSATE SODIUM 100 MG GELCAP PO SCH ×2 (08:40→20:19)
[2017-02-01] MEDS: LACTULOSE 20 GM/30 ML UDC PO SCH ×2 (08:40→20:19)
[2017-02-01] MEDS: CALCIUM CARBONATE 500 MG TAB PO SCH ×2 (08:41→20:19)
--- NOTE | 2017-02-01 09:08 | NUR ---
WAS SEEN BY DR. SAUNDERS, REPORT GIVEN ON PT'S CURRENT STATUS. CONTINUE TO MONITOR.
--- NOTE | 2017-02-01 11:49 | NUR ---
02/01/17 RD INITIAL ASSESSMENT COMPLETED PLEASE REFER TO NUTRITION ASSESSMENT UNDER CARE ACTIVITY FOR ESTIMATED NUTRITIONAL NEEDS. RD RECOMMENDATIONS: 1- RECOMMEND CONTINUE CURRENT DIET SUFFICIENT TO MEET 100% ESTIMATED NEEDS. 2- F/U 7 DAYS; LOW RISK. BLAINE BUTLER MBA, RD
[2017-02-01 16:00] VITALS: BP 143/89
--- NOTE | 2017-02-01 18:54 | NUR ---
PT ALERT AND RESPONSIVE, NO SIGNS OF ACUTE DISTRESS ENDORSED TO ONCOMING NURSE BEHAVIORAL HE[facility] CARE NURSE FOR CONTINUITY OF CARE.
--- NOTE | 2017-02-01 19:15 | NUR ---
PATIENT IS CURRENTLY RESTING IN BED AWAKE ALERT ORIENTED SPEAKS BENGALI NEEDS MET.SAFETY AND FALL PRECAUTIONS IMPLEMENTED.PT IS NON-COMPLIANT SOMETIMES DOESN'T LIKE TO TURN AND REPOSITION .PATIENT EDUCATED ON THE IMPORTANCE TO TURN AND REPOSITION PT VERBALIZES UNDERSTANDING BUT IT NEEDS TO BE REINFORCED.CALL LIGHT WITHIN REACH BED ALARM ON.
--- NOTE | 2017-02-01 19:50 | NUR ---
Patient's Plan of Care was discussed and reviewed with FITTING ROOM MAINTENANCE MECHANIC: [place]
[2017-02-01 20:00] VITALS: BP 132/96
[2017-02-01] MEDS: HYDROcodone/APAP 5/325 MG 1 TAB TAB PO PRN (20:18)
[2017-02-01] MEDS: ATORVASTATIN 20 MG TAB PO SCH (20:18)
--- NOTE | 2017-02-01 20:19 | NUR ---
EDUCATION GIVEN TO THE PATIENT ON HIS NIGHT TIME MEDICATIONS PT VERBALIZES UNDERSTANDING AND TOOK HIS MEDICATIONS SWALLOWED HIS MEDICATIONS WELL. WILL CONTINUE TO MONITOR.
--- NOTE | 2017-02-01 23:22 | NUR ---
PATIENT IV ANTIBIOTIC WAS ADMINISTERED BY MARIBEL TEJADA.
--- NOTE | 2017-02-02 00:10 | NUR ---
PATIENT IS CURRENTLY SLEEPING IN BED IN NO DISTRESS CONTINUE TO BE MONITORED.CALL LIGHT WITHIN REACH.
--- NOTE | 2017-02-02 01:15 | NUR ---
PATIENT SLEEPING WELL AT THIS TIME.
--- NOTE | 2017-02-02 03:40 | NUR ---
PT SLEEPING IN BED NO DISTRESS WILL CONTINUE TO MONITOR.
[2017-02-02] MEDS: AMPICILLIN/SULBACTAM 3 GM in NACL 0.9% 100 ML IV SCH ×3 (05:23→17:13)
--- NOTE | 2017-02-02 06:10 | NUR ---
PATIENT IS AWAKE ENCOURAGED AND EDUCATED TO USE THE INCENTIVE SPIROMETER AND DENIES PAIN WILL CONTINUE TO MONITOR.
--- NOTE | 2017-02-02 07:35 | NUR ---
PATIENT ENDORSED TO MARIBEL REYES.
--- NOTE | 2017-02-02 07:35 | NUR ---
RECEIVED REPORT FROM NIGHT NURSE. PT IS AAOX4. ON ROOM AIR. IV TO RIGHT FA 24G SALINE LOCK PATENT AND INTACT. 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 TRACH STOMA. INITIAL ASSESSMENT COMPLETED. REVIEWED PLAN OF CARE WITH PT, PT VERBALIZED UNDERSTANDING. ALL SAFETY/ FALL PRECAUTIONS MET. CALL LIGHT WITHIN REACH. WILL CONTINUE TO MONITOR.
[2017-02-02 08:00] VITALS: BP 138/88
[2017-02-02] MEDS ORDERED: ZOLPIDEM 5 MG TAB PO PRN (08:15)
[2017-02-02] MEDS: LACTOBACILLUS RHAMNOSUS GG 1 EACH CAP PO SCH (08:57)
[2017-02-02] MEDS: CALCIUM CARBONATE 500 MG TAB PO SCH ×2 (08:57→21:07)
[2017-02-02] MEDS: DOCUSATE SODIUM 100 MG GELCAP PO SCH ×2 (08:57→21:06)
[2017-02-02] MEDS: LOSARTAN 50 MG TAB PO SCH ×2 (08:57→21:07)
[2017-02-02] MEDS: amLODIPine 5 MG TAB PO SCH (08:58)
[2017-02-02] MEDS: LACTULOSE 20 GM/30 ML UDC PO SCH ×2 (09:01→21:06)
--- NOTE | 2017-02-02 09:03 | NUR ---
DUE MEDICATIONS GIVEN. PT TOLERATED WELL. ALL NEEDS MET. CALL LIGHT WITHIN REACH. WILL CONTINUE TO MONITOR.
--- NOTE | 2017-02-02 10:25 | NUR ---
PT CURRENTLY WATCHING TV. ALL NEEDS MET. CALL LIGHT WITHIN REACH
--- NOTE | 2017-02-02 10:59 | NUR ---
SS NOTE: [facility]BLE [facility] PT.
[2017-02-02] MEDS ORDERED: BISACODYL 10 MG SUPP RC SCH (12:04)
[2017-02-02] MEDS: MORPHINE SULFATE 4 MG/ML SYR IVP PRN ×2 (12:05→18:25)
--- NOTE | 2017-02-02 12:05 | NUR ---
DUE MEDICATIONS GIVEN, PT C/O OF ABD PAIN MEDICATED PER MD ORDERS. ALL NEEDS MET. CALL LIGHT WITHIN REACH. WILL CONTINUE TO MONITOR.
--- NOTE | 2017-02-02 12:22 | NUR ---
SS NOTE: MESSAGE LEFT FOR LUIS OLMEDO ([phone]) - COORDINATOR FOR [employer] [facility] PROGRAM REGARDING ANY PROGRESS WITH PT'S GREEN CARD AND PLACEMENT
--- NOTE | 2017-02-02 12:45 | NUR ---
CM NOTE: SNF INQUIRY FOLLOW UP: BHAVNA FAM FROM [facility], NO BEDS AVAILABLE. PER KALYANI FROM [facility], THE DON SAID NO BECAUSE PT IS POTENTIAL RETIREMENT AND THEY DON'T ACCEPT RETIREMENT FOR NOW.
--- NOTE | 2017-02-02 13:44 | NUR ---
FAXED CONCURRENT REVIEW TO [facility] [phone] PHONE [phone] FAXED CONCURRENT REVIEW TO [facility] [phone] PHONE DALJIT [phone] Addendum: 02/02/17 at 1351 by Maritza Christian CM FAX MART[facility],
--- NOTE | 2017-02-02 13:59 | NUR ---
SS NOTE: I SPOKE WITH PT BEDSIDE REGARDING HIS GREEN CARD. HE STATED THAT THE OLD SNF IN [place] ORDERED A GREEN CARD FOR HIM BEFORE HE WENT TO [place]. HE ALSO STATED THAT HE DOES NOT REMEMBER HIS FAMILY PHONE NUMBERS BUT HE HAS THEM IN HIS PHONE. HE REQUESTED THAT HIS THINGS FROM [place] BE BROUGHT TO HIS ROOM. HE REPORTED THAT HE IS IN AGREEMENT WITH GOING TO ANY SNF OR [facility] HE HAS HIS THINGS THAT ARE CURRENTLY AT [place]. I SPOKE WITH JEAN CARLOS FROM [facility] [place]. SHE STATED THAT THEY CAN DROP OFF PT'S THINGS EITHER TODAY OR TOMORROW.
--- NOTE | 2017-02-02 14:00 | NUR ---
PHYSICAL THERAPY CO-SIGN The Physical Therapy Progress Notes documented by Platen Grinder have been reviewed. I CONCUR W/VALUE ADVISOR NOTE; CONT PER TX PLAN Reviewed/Co-Signed by: Devi Suárez PT Documentation Done by: SHAREE FRYE VALUE ADVISOR Addendum: 02/02/17 at 1400 by Devi Suárez PT Amended: Links added.
--- NOTE | 2017-02-02 14:10 | NUR ---
CHECKED IN ON PT. PT CURRENTLY WATCHING TV. CALL LIGHT WITHIN REACH. WILL CONTINUE TO MONITOR.
[2017-02-02 16:00] VITALS: BP 138/94
--- NOTE | 2017-02-02 17:13 | NUR ---
DUE MEDICATIONS GIVEN. NO S/S OF DISTRESS OR DISCOMFORT NOTED. CALL LIGHT WITHIN REACH. WILL CONTINUE TO MONITOR
--- NOTE | 2017-02-02 18:15 | NUR ---
PT C/O ABD PAIN 07/19 VS: BP 149/97, HR 122, PULSE OX 92% ON ROOM AIR. ALL NEEDS MET. CALL LIGHT WITHIN REACH.
--- NOTE | 2017-02-02 19:10 | NUR ---
ENDORSED PLAN OF CARE TO NIGHT NURSE, PT IN STABLE CONDITION.
--- NOTE | 2017-02-02 19:11 | NUR ---
RECD. RESTING IN BED, AWAKE, A/OX3. RESPIRATION EVEN AND UNLABORED. NOTED OLD TRACHEOSTOMY SITE, OPEN TO AIR. CONTRACTURES NOTED ON BOTH HANDS. LUNGS CLEAR ON BILATERAL AUSCULTATION. 02 SAT -96% ON ROOM AIR. INCISION IN THE ABDOMEN WITH RAMIRO, OPEN TO AIR DRY AND INTACT. PLAN OF CARE FOR THE SHIFT DISCUSSED. INSTRUCTED TO CALL NURSE WHEN NEEDING HELP. VERBALIZED UNDERSTANDING. PAIN /10, CLAIMED TOLERABLE.
--- NOTE | 2017-02-02 20:00 | NUR ---
Patient's Plan of Care was discussed and reviewed with RADARMAN: JOHNNY BROWN
[2017-02-02] MEDS: ATORVASTATIN 20 MG TAB PO SCH (21:07)
--- NOTE | 2017-02-02 21:07 | NUR ---
DUE PO MEDICATIONS GIVEN, TOLERATED WELL.
[2017-02-02] MEDS: HYDROcodone/APAP 5/325 MG 1 TAB TAB PO PRN (21:10)
--- NOTE | 2017-02-03 | NUR ---
SLEEPING COMFORTABLY IN BED.
[2017-02-03] MEDS: AMPICILLIN/SULBACTAM 3 GM in NACL 0.9% 100 ML IV SCH ×4 (00:10→17:18)
[2017-02-03] MEDS: MORPHINE SULFATE 4 MG/ML SYR IVP PRN ×3 (00:10→18:44)
[2017-02-03 01:00] VITALS: BP 132/102
--- NOTE | 2017-02-03 07:30 | NUR ---
RECEIVED REPORT FROM SAP CONSULTANT PRINT CONTROLLER. NO S/S OF ACUTE CARDIAC/RESPIRATORY DISTRESS OR DISCOMFORT. SAFETY MEASURES IN PLACE, CALL LIGHT WITHIN REACH. WILL CONTINUE PLAN OF CARE AND CONTINUE TO MONITOR.
[2017-02-03 08:00] VITALS: BP 131/69
[2017-02-03] MEDS: amLODIPine 5 MG TAB PO SCH (09:29)
[2017-02-03] MEDS: DOCUSATE SODIUM 100 MG GELCAP PO SCH ×2 (09:29→21:05)
[2017-02-03] MEDS: CALCIUM CARBONATE 500 MG TAB PO SCH ×2 (09:29→21:05)
[2017-02-03] MEDS: LACTOBACILLUS RHAMNOSUS GG 1 EACH CAP PO SCH (09:29)
[2017-02-03] MEDS: LACTULOSE 20 GM/30 ML UDC PO SCH ×2 (09:30→21:04)
[2017-02-03] MEDS: LOSARTAN 50 MG TAB PO SCH ×2 (09:30→21:05)
--- NOTE | 2017-02-03 10:00 | NUR ---
PT TOLERATED AM MEDS WELL. NO S/S OF ACUTE DRESSING OR DISCOMFORT. CALL LIGHT WITHIN REACH, WILL CONTINUE TO MONITOR.
--- NOTE | 2017-02-03 10:48 | NUR ---
SS NOTE: I SPOKE WITH LUIS OLMEDO ([phone]) - COORDINATOR FOR [employer] REGARDING ANY PROGRESS WITH PT'S GREEN CARD AND PLACEMENT. SHE STATED THAT SHE WILL FOLLOW UP WITH THE CHEMICAL RESEARCH WORKER AT THE SNF THAT PT WAS AT BEFORE. SHE ALSO STATED THAT ONE OF THEIR SOCIAL WORKERS MAY COME TO VISIT PT TODAY.
--- NOTE | 2017-02-03 12:30 | NUR ---
PT TOLERATING IVPB ANTIBIOTICS WELL. APPLIED BETADINE AND DRY DRESSING TO INCISION DIRECTED BY DR SAUNDERS. NO S/S OF ACUTE DISTRESS OR DISCOMFORT. CALL LIGHT WITHIN REACH, WILL CONTINUE TO MONITOR.
--- NOTE | 2017-02-03 13:10 | NUR ---
SS NOTE: I SPOKE WITH DARYN FROM [facility] TO FOLLOW UP ON PT'S BELONGINGS. SHE STATED THAT THEY WILL BRING PT'S BELONGINGS TOMORROW BEDSIDE.
[2017-02-03 14:23] LABS: BASOPHILS # (AUTO) 0.2 K/uL (0.00-0.22); EOSINOPHILS # (AUTO) 0.4 K/uL (0-0.4); EOSINOPHILS % (AUTO) 2.6 % (0.0-4.0); HEMOGLOBIN 16.5 g/dL (12.0-18.0); LYMPHOCYTES # (AUTO) 1.3 K/uL (2.0-11.5); LYMPHOCYTES % (AUTO) 8.4 % (20.5-51.1); MEAN CORPUSCULAR HEMOGLOBIN 32 pg (27-31); MEAN CORPUSCULAR HGB CONC 33 g/dL (33-37); MEAN CORPUSCULAR VOLUME 97 fL (80-94); MONOCYTES # (AUTO) 1.1 K/uL (0.8-1.0); MONOCYTES % (AUTO) 7.3 % (1.7-9.3); NEUTROPHILS # (AUTO) 12.6 K/uL (1.8-7.7); NEUTROPHILS % (AUTO) 80.7 % (42.2-75.2); PLATELET COUNT (AUTO) 208 K/uL (140-450); RED BLOOD CELL COUNT(AUTO) 5.13 MIL/uL (4.20-6.10); RED CELL DISTRIBUTION WIDTH 12.3 % (11.6-13.7); WHITE BLOOD COUNT (AUTO) 15.6 K/uL (4.8-10.8)
[2017-02-03 14:27] LABS: ANION GAP 16.7 (8-16); CALCIUM 9.2 mg/dL (8.5-10.1); CARBON DIOXIDE 23.9 mmol/L (21-32); CREATININE 1.2 mg/dL (0.6-1.3); MAGNESIUM 2.1 mg/dL (1.8-2.4); PHOSPHORUS 3.6 mg/dL (2.5-4.9); POTASSIUM 3.6 mmol/L (3.5-5.1); TOTAL BILIRUBIN 2.8 mg/dL (0.0-1.0); TOTAL PROTEIN, SERUM 6.8 g/dL (6.4-8.2)
[2017-02-03] MEDS: HYDROcodone/APAP 5/325 MG 1 TAB TAB PO PRN (14:30)
--- NOTE | 2017-02-03 14:39 | NUR ---
PT RESTING. NO S/S OF ACUTE DISTRESS OR DISCOMFORT. CALL LIGHT WITHIN REACH, WILL CONTINUE TO MONITOR.
[2017-02-03 16:00] VITALS: BP 136/72
--- NOTE | 2017-02-03 16:04 | NUR ---
FAXED CONCURRENT REVIEW TO [facility] [phone] PHONE [phone] FAXED CONCURRENT REVIEW TO [facility] [phone] PHONE DALJIT [phone]
[2017-02-03] MEDS: NACL 0.9% 1,000 ML IV SCH (16:10)
--- NOTE | 2017-02-03 16:30 | NUR ---
SS NOTE: SENT SNF PLACEMENT INQUIRIES TO: - [facility] (C: [phone]) - [facility] (C: [phone]) - [facility] (C: [phone]) - [facility] (C: [phone]) - [facility] (C: [phone]) - [facility] (C: [phone]) - [facility] (C: [phone])
--- NOTE | 2017-02-03 17:42 | NUR ---
PT IS RESTING. NO S/S OF ACUTE DISTRESS OR DISCOMFORT. CALL LIGHT WITHIN REACH, WILL CONTINUE TO MONITOR.
--- NOTE | 2017-02-03 19:13 | NUR ---
ENDORSED REPORT TO EMPLOYMENT RECRUITER RN. NO S/S OF ACUTE DISTRESS OR DISCOMFORT. PT IN STABLE CONDITION.
[2017-02-03] MEDS: ATORVASTATIN 20 MG TAB PO SCH (21:05)
--- NOTE | 2017-02-03 22:32 | NUR ---
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
[2017-02-04 00:45] VITALS: BP 122/98
[2017-02-04] MEDS: AMPICILLIN/SULBACTAM 3 GM in NACL 0.9% 100 ML IV SCH ×5 (00:52→23:56)
[2017-02-04] MEDS: HYDROcodone/APAP 5/325 MG 1 TAB TAB PO PRN ×3 (00:58→21:01)
--- NOTE | 2017-02-04 00:58 | NUR ---
PT C/O PAIN . HE SAID HE NEED NORCO. SO MEDICATED ORDERED. WILL CONTINUE TO MONITOR.
[2017-02-04] MEDS: NACL 0.9% 1,000 ML IV SCH ×2 (02:10→19:25)
[2017-02-04] MEDS: MORPHINE SULFATE 4 MG/ML SYR IVP PRN ×3 (02:48→17:38)
--- NOTE | 2017-02-04 03:30 | NUR ---
SLEEPING WELL AT THIS TIME. NO S/S OF ANY DISCOMFORT NOR PAIN NOTED.
--- NOTE | 2017-02-04 07:17 | NUR ---
ENDORSED PT IN STABLE CONDITION TO AM NURSE.
--- NOTE | 2017-02-04 07:20 | NUR ---
RECEIVED REPORT FROM LUMP INSPECTOR RN. PT IS SLEEPING. NO S/S OF ACUTE CARDIAC/RESPIRATORY DISTRESS OR DISCOMFORT. SAFETY MEASURES IN PLACE, CALL LIGHT WITHIN REACH. WILL CONTINUE PLAN OF CARE AND CONTINUE TO MONITOR.
[2017-02-04 07:43] VITALS: BP 130/81
[2017-02-04] MEDS ORDERED: FLUCONAZOLE 100 MG TAB PO SCH (08:45)
[2017-02-04] MEDS: LACTOBACILLUS RHAMNOSUS GG 1 EACH CAP PO SCH (09:33)
[2017-02-04] MEDS: LOSARTAN 50 MG TAB PO SCH ×2 (09:33→21:01)
[2017-02-04] MEDS: CALCIUM CARBONATE 500 MG TAB PO SCH ×2 (09:33→21:00)
[2017-02-04] MEDS: DOCUSATE SODIUM 100 MG GELCAP PO SCH ×2 (09:33→21:07)
[2017-02-04] MEDS: amLODIPine 5 MG TAB PO SCH (09:33)
[2017-02-04] MEDS: LACTULOSE 20 GM/30 ML UDC PO SCH ×2 (09:34→21:00)
[2017-02-04] MEDS: CLOTRIMAZOLE 1% 30 GM CRM TUBE TP SCH ×2 (09:34→21:08)
--- NOTE | 2017-02-04 10:35 | NUR ---
PT TOLERATED AM MEDS WELL. NO S/S OF ACUTE DISTRESS OR DISCOMFORT. CALL LIGHT WITHIN REACH, WILL CONTINUE TO MONITOR.
--- NOTE | 2017-02-04 13:30 | NUR ---
PT TRANSFERRED TO RADIOLOGY. PT HAS NO S/S OF ACUTE DISTRESS OR DISCOMFORT.
[2017-02-04] MEDS ORDERED: Z-GUARD PASTE TP PRN (14:00)
--- NOTE | 2017-02-04 14:13 | NUR ---
SS NOTE: MESSAGE LEFT FOR ADMISSIONS AT [facility] TO FOLLOW UP REGARDING PT'S REFERRAL MESSAGE LEFT FOR ADMISSIONS AT [facility] TO FOLLOW UP REGARDING PT'S REFERRAL MESSAGE LEFT FOR ADMISSIONS AT [facility] TO FOLLOW UP REGARDING PT'S REFERRAL PER ZAMZAM FROM [facility], NO BEDS AVAILABLE PER MARIVEL FROM [facility], NO BEDS AVAILABLE PER KAITLYNN FROM [facility], NO BEDS AVAILABLE
--- NOTE | 2017-02-04 14:45 | NUR ---
CM NOTE INITIAL REVIEW FAXED TO [facility] (FAX# [phone], C: [phone], OPT 2) AND [facility] (FAX# [phone], C: [phone], OPT 1, 1)
--- NOTE | 2017-02-04 15:09 | NUR ---
SS NOTE: SENT ADDITIONAL SNF PLACEMENT INQUIRIES TO: - [facility] - [facility] - [facility] - [facility] - [facility] [employer]
--- NOTE | 2017-02-04 15:20 | NUR ---
PT RETURNED FROM RADIOLOGY. NO S/S OF ACUTE DISTRESS OR DISCOMFORT. CALL LIGHT WITHIN REACH, WILL CONTINUE TO MONITOR.
[2017-02-04 16:00] VITALS: BP 138/84
--- NOTE | 2017-02-04 16:01 | NUR ---
PT SLEEPING. NO S/S OF ACUTE DISTRESS OR DISCOMFORT. CALL LIGHT WITHIN REACH, WILL CONTINUE TO MONITOR.
--- NOTE | 2017-02-04 19:10 | NUR ---
ENDORSED REPORT TO BILLING AND ACCOUNTING STAFF ASSISTANT MARIBEL CAPPS. PT HAS NO S/S OF ACUTE DISTRESS OR DISCOMFORT. PT IN STABLE CONDITION.
--- NOTE | 2017-02-04 19:11 | NUR ---
RECEIVED REPORT FROM DAYSHIFT NURSE. PT IS ALERT AND AWAKE, HAS NO COMPLAIN OF PAIN. ON ROOM AIR, NO S/S OF RESPIRATORY DISTRESS/DISCOMFORT NOTED. IV SITE IS PATENT, INTACT AND INFUSING WELL. PLAN OF CARE DISCUSSED, VERBALIZED UNDERSTANDING. SAFETY MEASURES CHECKED, CALL LIGHT WITHIN REACH. WILL CONTINUE TO MONITOR.
[2017-02-04] MEDS: ATORVASTATIN 20 MG TAB PO SCH (21:01)
--- NOTE | 2017-02-04 21:12 | NUR ---
DUE MEDS GIVEN. PROVIDED HEALTH TEACHING, BENEFITS AND S/E, VERBALIZED UNDERSTANDING. PT TOLERATED WELL.
--- NOTE | 2017-02-04 21:45 | NUR ---
SPOKE WITH DR SAUNDERS VIA PHONE. ASKED ABOUT THE RESULT FOR BARIUM ENEMA AND I TOLD HIM THAT THERE IS NO RESULT YET AND PER DAY SHIFT TOLD ME THAT DR ALVAREZ WILL MAKE THE IMPRESSION. I TOLD HIM THAT I WILL TRY TO CONTACT DR. ALVAREZ.
--- NOTE | 2017-02-04 21:49 | NUR ---
CALLED RADIOLOGY AND SPOKE WITH DAMIEN VIA PHONE. I TOLD HIM THAT DR. SAUNDERS WANTS THE RESULT IMMEDIATELY AND HE TOLD ME THAT HE WILL CALL [facility] TO CALL DR ALVAREZ.
--- NOTE | 2017-02-04 22:36 | NUR ---
PAGED DR. SAUNDERS. WAITING FOR CALLBACK.
--- NOTE | 2017-02-04 22:37 | NUR ---
CALLBACK RECEIVED AND SPOKE WITH DR SAUNDERS. REPORTED THE RESULT OF BARIUM ENEMA AND SAID "OK". NO NEW ORDERS MADE.
[2017-02-05] VITALS: BP 136/95
--- NOTE | 2017-02-05 | NUR ---
V/S CHECKED AND STABLE. HAS NO COMPLAIN OF PAIN AT THIS TIME. NO S/S OF RESPIRATORY DISTRESS/ DISCOMFORT NOTED. CALL LIGHT WITHIN REACH.
[2017-02-05] MEDS: Z-GUARD PASTE TP SCH ×2 (01:00→12:44)
--- NOTE | 2017-02-05 01:33 | NUR ---
PT SLEEPING AT THIS TIME. SAFETY MEASURES CHECKED, CALL LIGHT WITHIN REACH.
--- NOTE | 2017-02-05 03:00 | NUR ---
INFILTRATED IV. INSERTED A NEW IV TO THE RIGHT AC # 22, PATENT AND INTACT.
--- NOTE | 2017-02-05 05:00 | NUR ---
AM CARE DONE, PT HAS NO COMPLAIN OF PAIN. NO S/S OF RESPIRATORY DISTRESS/DISCOMFORT NOTED.
[2017-02-05] MEDS: AMPICILLIN/SULBACTAM 3 GM in NACL 0.9% 100 ML IV SCH (05:07)
--- NOTE | 2017-02-05 07:28 | NUR ---
ENDORSED REPORT TO DAY SHIFT NURSE FOR CONTINUITY OF CARE. PT IS IN STABLE CONDITION.
--- NOTE | 2017-02-05 07:29 | NUR ---
RECEIVED PT AWAKE SITTING ON BED, AAOX4, NO S/S OF RESPIRATORY DISTRESS. WITH IV ACCESS AT RIGHT AC 22G INFUSING FLUIDS WELL. WITH MIDLINE ABDOMINAL INCISION WITH DRY AND INTACT DRESSING. NO COMPLAINTS AT THIS TIME. DISCUSSED PLAN OF CARE, PT VERBALIZED UNDERSTANDING. SAFETY PRECAUTIONS ENFORCED. CALL LIGHT WITHIN REACH, WILL CONTINUE TO MONITOR.
[2017-02-05 08:00] VITALS: BP 150/93
--- NOTE | 2017-02-05 08:24 | NUR ---
SS NOTE: RECEIVED A MESSAGE FROM JAIME AT [facility], SHE STATED THAT THEY ARE UNABLE TO ACCEPT PT RECEIVED A MESSAGE FROM LORRI AT [facility], THEY DO NOT HAVE ANY BEDS AVAILABLE
[2017-02-05] MEDS: DOCUSATE SODIUM 100 MG GELCAP PO SCH ×2 (09:00→20:28)
[2017-02-05] MEDS: CALCIUM CARBONATE 500 MG TAB PO SCH ×2 (09:10→20:29)
[2017-02-05] MEDS: amLODIPine 5 MG TAB PO SCH (09:10)
[2017-02-05] MEDS: LACTOBACILLUS RHAMNOSUS GG 1 EACH CAP PO SCH (09:11)
[2017-02-05] MEDS: LOSARTAN 50 MG TAB PO SCH ×2 (09:11→20:28)
[2017-02-05] MEDS: LACTULOSE 20 GM/30 ML UDC PO SCH ×2 (09:11→20:27)
[2017-02-05] MEDS: CLOTRIMAZOLE 1% 30 GM CRM TUBE TP SCH ×2 (09:14→20:42)
--- NOTE | 2017-02-05 09:16 | NUR ---
DUE MEDS GIVEN, PT TOLERATED WELL. HELD COLACE DUE TO LOOSE STOOLS X2 THIS MORNING. PT AT BEDSIDE. WILL CONTINUE TO MONITOR.
--- NOTE | 2017-02-05 09:21 | NUR ---
PATIENT AMBULATING ALONG THE HALLWAYS WITH PHYSICAL THERAPISTS.
--- NOTE | 2017-02-05 09:23 | NUR ---
PT Notes Spoke with RN to inform and update MD regarding recomm of BLE ankle orthotics (AFO), recomm patient to f/u with OP evp general counsel, since patient states he use to have them, but threw them away d/t them being very old. Patient benefit from possible further bracing for support and assistance, recomm OP referral. Nursing aware.
--- NOTE | 2017-02-05 09:45 | NUR ---
PT REFUSED BLOOD DRAW, DR. NORTH NOTIFIED. NO NEW ORDERS.
--- NOTE | 2017-02-05 11:05 | NUR ---
PT SITTING ON BED AWAKE AND WATCHING TV. KEPT CLEAN AND DRY. ALL NEEDS MET, WILL CONTINUE TO MONITOR.
--- NOTE | 2017-02-05 12:05 | NUR ---
CM NOTE INITIAL REVIEW FAXED TO [facility] (FAX# [phone], C: [phone], OPT 2) AND [facility] (FAX# [phone], C: [phone], OPT 1, 1) CM & SS NOTES, ORDER TO XFER TO SNF FAXED TO [facility].
--- NOTE | 2017-02-05 12:47 | NUR ---
IV TUBING AND WOUND DRESSING CHANGED. LUNCH SERVED, PT HAS GOOD APPETITE. ALL NEEDS MET AT THIS TIME. CALL LIGHT WITHIN REACH, WILL CONTINUE TO MONITOR.
--- NOTE | 2017-02-05 12:53 | NUR ---
SNF PLACEMENT INQUIRIES PER PERICO FROM [facility] (TEL # [phone]), THEY WILL REVIEW PATIENT'S INFO. SENT PACKET TO FAX # [phone]. PER TASHIA FROM [facility] ( TEL # [phone]), THEY WILL REVIEW PT'S INFO. SENT PACKET TO FAX # [phone]. PER KEVIN FROM [facility] (TEL # [phone]), THEY WILL REVIEW PT'S INFO. SENT PACKET TO FAX # [phone]. PER AIDEN FROM [facility] (TEL # [phone]), THEY WILL REVIEW PT'S INFO. SENT PACKET TO FAX # [phone]. PER SARWAT FROM [facility] (TEL # [phone]), THEY WILL REVIEW PT'S INFO. SENT PACKET TO FAX # [phone]. PER TITUS FROM [facility] (TEL # [phone]), THEY WILL REVEW PT'S INFO. SENT PACKET TO FAX # [phone].
--- NOTE | 2017-02-05 15:02 | NUR ---
SS NOTE: PER GALILEO FROM [facility], NO LONGTERM BEDS AVAILABLE PER SARWAT FROM [facility], NO LONGTERM BEDS AVAILABLE
--- NOTE | 2017-02-05 15:04 | NUR ---
DR SAUNDERS AT BEDSIDE
[2017-02-05 16:00] VITALS: BP 123/76
--- NOTE | 2017-02-05 17:34 | NUR ---
PT AWAKE SITTING ON BED WATCHING TV. ALL NEEDS MET AT THIS TIME, WILL CONTINUE TO MONITOR.
--- NOTE | 2017-02-05 18:48 | NUR ---
IV OUT, INSERTED NEW IV AT LEFT FOREARM G22 PATENT AND INTACT.
[2017-02-05] MEDS: NACL 0.9% 1,000 ML IV SCH (19:37)
--- NOTE | 2017-02-05 19:37 | NUR ---
RECEIVED REPORT FROM DAY SHIFT NURSE, PT IS AAOX4, HAS NO COMPLAIN OF PAIN. ON ROOM AIR, HAS NO S/S OF RESPIRATORY DISTRESS/DISCOMFORT NOTED. ABDOMINAL DRESSING NOTED, DRY AND INTACT. PLAN OF CARE DISCUSSED, VERBALIZED UNDERSTANDING. SAFETY MEASURES CHECKED, CALL LIGHT WITHIN REACH. WILL CONTINUE TO MONITOR.
--- NOTE | 2017-02-05 19:37 | NUR ---
ENDORSED PT TO JEFRY RN IN STABLE CONDITION FOR CONTINUITY OF CARE
[2017-02-05] MEDS: ATORVASTATIN 20 MG TAB PO SCH (20:29)
--- NOTE | 2017-02-05 20:32 | NUR ---
DUE MEDS GIVEN. PROVIDED DRUG INFORMATION, BENEFITS AND S/E, VERBALIZED UNDERSTANDING. PT TOLERATED WELL.
--- NOTE | 2017-02-05 21:30 | NUR ---
PT AMBULATED TO USE BEDSIDE COMMODE WITH MINIMAL ASSISTANCE. NO S/S OF RESPIRATORY DISTRESS/DISCOMFORT NOTED.
[2017-02-06] VITALS: BP 109/70
--- NOTE | 2017-02-06 | NUR ---
PT SLEEPING, EASILY AWAKEN BY HIS NAME. V/S AND STABLE, HAS NO COMPLAIN OF PAIN. NO S/S OF RESPIRATORY DISTRESS/DISCOMFORT NOTED.
[2017-02-06] MEDS: Z-GUARD PASTE TP SCH ×2 (01:22→12:00)
--- NOTE | 2017-02-06 02:52 | NUR ---
PT SLEEPING AT THIS TIME. NO S/S OF DISTRESS. CALL LIGHT WITHIN REACH.
[2017-02-06] MEDS: HYDROcodone/APAP 5/325 MG 1 TAB TAB PO PRN (03:24)
--- NOTE | 2017-02-06 03:24 | NUR ---
PT COMPLAINED OF PAIN. MEDICATED WITH PAIN MED. PER MD ORDERED.
--- NOTE | 2017-02-06 06:26 | NUR ---
AM CARE DONE. PTV TOLERATED WELL. NO S/S OF DISTRESS.
--- NOTE | 2017-02-06 07:23 | NUR ---
ENDORSED REPORT TO DAY SHIFT NURSE FOR CONTINUITY OF CARE. PT IS IN STABLE CONDITION.
--- NOTE | 2017-02-06 07:24 | NUR ---
PT ASLEEP IN BED, ABLE TO RESPOND TO VERBAL STIMULI. NO SIGNS OF ACUTE DISTRESS. BREATHING EVENLY AND UNLABORED. SKIN IS WARM AND DRY. NOTED STAPLED ON MIDLINE ABDOMINAL REGION. S/P EXPLORE LAP 01/29/17. NO REDNESS, BLEEDING OR DISCHARGE NOTED. KEPT CLEAN AND DRY. NO EPISODES OF ANY BOWEL OR BLADDER DISCOMFORT. DENIES OF ANY PAIN OR DISCOMFORT. ALL NEEDS ATTENDED. SAFETY PRECAUTIONS MAINTAINED. CALL LIGHT WITHIN REACH.
[2017-02-06 08:00] VITALS: BP 123/73
[2017-02-06] MEDS: LOSARTAN 50 MG TAB PO SCH (08:35)
[2017-02-06] MEDS: LACTOBACILLUS RHAMNOSUS GG 1 EACH CAP PO SCH (08:35)
[2017-02-06] MEDS: DOCUSATE SODIUM 100 MG GELCAP PO SCH (08:35)
[2017-02-06] MEDS: amLODIPine 5 MG TAB PO SCH (08:35)
[2017-02-06] MEDS: LACTULOSE 20 GM/30 ML UDC PO SCH (08:35)
[2017-02-06] MEDS: CLOTRIMAZOLE 1% 30 GM CRM TUBE TP SCH (08:36)
[2017-02-06] MEDS: CALCIUM CARBONATE 500 MG TAB PO SCH (08:36)
--- NOTE | 2017-02-06 12:54 | NUR ---
FAXED CONCURRENT REVIEW TO [facility] [phone] PHONE DALJIT [phone] CALLED DALJIT AND ASKED FOR ANOTHER SNF LIST. Addendum: 02/06/17 at 1303 by Maritza Christian CM FAXED TO [facility] [phone] DALJIT [phone] CALLED DALJIT FROM [place] TO FAX ANOTHER SNF LIST
--- NOTE | 2017-02-06 13:54 | NUR ---
RECEIVED A CALL FROM ARGENIS, SUPERVISOR LABOR GANG FOR [facility]. THEY WILL ACCEPT THE PATIENT. HE WILL GO TO ROOM [address] UNDER DR. Lina ROSS CALL REPORT TO [phone]. I CALLED [facility] AND SPOKE WITH DALJIT. HE SAID HE GAVE THE AUTH TO [facility] AND TO [facility] FOR TRANSPORT. I HAVE TO SET UP TRANSPORT, PHONE [phone].
--- NOTE | 2017-02-06 13:54 | NUR ---
CM NOTE: SNF PLACEMENT INQUIRIES PER BETO FROM [facility] (TEL # [phone]), THEY WILL REVIEW PT'S INFO. SENT PACKET TO FAX # [phone]. PER DELL FROM [facility], NO BEDS AVAILABLE. PER MARIO FROM [facility] (TEL # [phone]), THEY WILL REVIEW PT'S INFO. SENT PACKET TO FAX #[phone]. PER IAN FROM [facility], [facility] NO MALE BEDS AVAILABLE. PER ECTOR FROM [facility] (TEL # [phone]), THEY WILL REVIEW PT'S INFO. SENT PACKET TO FAX #[phone]. PER VIKAS FROM [facility], NO BEDS AVAILABLE. PER OPAL FROM [facility] ([phone]), THEY WILL REVIEW PT'S INFO. SENT PACKET TO FAX # [phone]. PER MORIS FROM [facility], NO BEDS AVAILABLE. PER MICHELLE FROM [facility], NO BEDS AVAILABLE. PER ALANNA FROM [facility], THEY HAVE DIFFICULTY FINDING A DOCTOR FOR [facility]. PER PRISCILA FROM [facility], NO BEDS AVAILABLE. PER TAYLOR FROM [facility] ( TEL #[phone]), THEY WILL REVIEW PT'S INFO. SENT PACKET TO FAX # [phone]. PER CHRIS FROM [facility] (TEL #[phone]), THEY WILL REVIEW PT'S INFO. SENT PACKET TO FAX #[phone]. PER KYLIE FROM [facility] (TEL #[phone]), THEY WILL REVIEW PT'S INFO. SENT PACKET TO FAX # [phone]. PER HOLA FROM [facility], NO BEDS AVAILABLE. PER JOSEPH FROM [email or web address] [facility] THEY ONLY ACCEPT PTS OVER 65 Y/O. PER MOY FROM [facility] (TEL #[phone]), THEY WILL REVIEW PT'S INFO. SENT PACKET TO FAX # [phone]. PER ADILENE FROM [facility], NO BEDS AVAILABLE. PER JOI FROM [facility] (TEL #[phone]), THEY WILL REVIEW PT'S INFO. SENT PACKET TO FAX # [phone]. PER RODRIGUEZ FROM [facility] (TEL # [phone]), THEY WILL REVIEW PT'S INFO. SENT PACKET TO FAX #[phone]. PER EMMANUEL FROM [facility] (TEL #[phone]), THEY WILL REVIEW PT'S INFO. SENT PACKET TO FAX #[phone]. PER GRACE FROM [facility], THEY DON'T ACCEPT [facility] AT THIS TIME. PER VITA FROM [facility], NO BEDS AVAILABLE. PER TOBY FROM [facility] (TEL # [phone]), THEY WILL REVIEW PT'S INFO. SENT PACKET TO FAX # [phone]. PER EFRAIN FROM [facility], NO MALE BEDS AVAILABLE. PER LI FROM [facility], NO BEDS AVAILABLE. PER IRVIN FROM [facility] (TEL #[phone]), THEY WILL REVIEW PT'S INFO. SENT PACKET TO FAX # [phone]. PER DALJIT FROM [facility] NO 24 HOUR RN IN THE FACILITY. PER MARIO FROM [facility] (TEL # [phone]), THEY WILL REVIEW PT'S INFO. SENT PACKET TO FAX #[phone]. PER ADRIANNA FROM [facility] (TEL # [phone]), THEY WILL REVIEW PT'S INFO. SENT PACKET TO FAX #[phone]. PER ELIDIA FROM [facility] (TEL # [phone]), THEY WILL REVIEW PT'S INFO. SENT PACKET TO FAX #[phone]. PER ROSALINA FROM [facility], [facility] (TEL #[phone]), THEY WILL REVIEW PT'S INFO. SENT PACKET TO FAX #[phone].
[2017-02-06] MEDS ORDERED: OSC500 PO (14:57)
[2017-02-06] MEDS ORDERED: LOTC TP (14:57)
[2017-02-06] MEDS ORDERED: LACT10CA PO (14:57)
[2017-02-06] MEDS ORDERED: ZGUARD TP ×2 (14:57)
[2017-02-06] MEDS ORDERED: ATOR20TA40 PO (14:57)
[2017-02-06] MEDS ORDERED: ZOLP5TAB1 PO (14:57)
[2017-02-06] MEDS ORDERED: ONDA2SOL45 IVP (14:57)
[2017-02-06] MEDS ORDERED: ACET-9525 PO (14:57)
[2017-02-06] MEDS ORDERED: DOCU-67 PO (14:57)
[2017-02-06] MEDS ORDERED: AMLO5TAB4 PO (14:57)
[2017-02-06] MEDS ORDERED: ACET-1182 PO (14:57)
[2017-02-06] MEDS ORDERED: LOSA50TA1 PO (14:57)
--- NOTE | 2017-02-06 15:00 | NUR ---
RECEIVED ORDER FROM DR. NORTH. MAY D/C PT TO SNF TODAY AT [facility]. NO P/U TIME YET PER EMELY RODAS. PT MADE AWARE.
--- NOTE | 2017-02-06 15:00 | NUR ---
RECEIVED CALL FROM DALJIT FROM [employer] [facility]. THE AUTH FOR [employer] [facility]SP[facility] IS [id number]. HE WILL GO TO [facility] AT [address] IN [place]. PHONE [phone]. I CALLED [employer] [facility]. RECEIVED A CALL BACK FROM SIMI FROM [employer]. SHE SAID SHE SET UP TRANSPORT WITH [facility]. VALERIE LÓPEZ CHARGE NURSE AWARE. FOR [facility] [address] Lo ROSS PHONE [phone]. Addendum: 02/06/17 at 1508 by Maritza Christian SUPERVISOR ELECTRIC MOTOR TESTING TIME FOR PATIENT IS 6:30P.M.
[2017-02-06] MEDS ORDERED: AMPI1PDS19 IV (15:13)
[2017-02-06 16:00] VITALS: BP 132/74
--- NOTE | 2017-02-06 16:11 | NUR ---
NEW HD ORDER RECEIVED FROM DR. JOAQUÍN JANE. CALLED [facility] AND SPOKE WITH KEI. MADE AWARE OF SCHEDULED HD APPOINTMENT FOR TODAY. CONTINUE TO MONITOR. Addendum: 02/06/17 at 1626 by Jose Arevalo RN WRONG PT
--- NOTE | 2017-02-06 16:25 | NUR ---
CALLED [facility] AND REPORT GIVEN TO JEROME LÓPEZ. ESTIMATED P/U TIME 1830 PER CHARGE NURSE.
--- NOTE | 2017-02-06 18:58 | NUR ---
PT ALERT AND RESPONSIVE NO SIGNS OF ACUTE DISTRESS. ENDORSED TO ONCOMING TIRE ROOM SUPERVISOR NURSE FOR CONTINUITY OF CARE.
--- NOTE | 2017-02-06 19:15 | NUR ---
RECEIVED REPORT FROM MARIBEL SALDAÑA AT BEDSIDE. INITIAL ASSESSMENT COMPLETED. PT AAOX4. PT HAS MID LINE ABDOMINAL INCISION S/P EXP LAP WITH 21 RAMIRO. PT HAS IV TO LEFT FOREARM G 24 ASYMPTOMATIC, PATENT AND INTACT. PT AMBULATES TO BEDSIDE COMMODE WITH ASSIST. ORIENTED PT TO ROOM AND SURROUNDINGS AND USED OF CALL LIGHT. SAFETY MEASURES IN PLACE. AWAITING FOR PT'S BRIDGE BUILDER TO BE DISCHARGED. WILL CONTINUE TO MONITOR PT.
[2017-02-06 20:00] VITALS: BP 138/78
--- NOTE | 2017-02-06 20:03 | NUR ---
CALLED [facility] TO ASK ABOUT PT'S ANIMAL CARE ASSISTANT ESTIMATED TIME. THEY SAID IN ABOUT 30 MIN. THEY WILL BE HERE TO ANIMAL CARE ASSISTANT PT.
--- NOTE | 2017-02-06 20:45 | NUR ---
PT DISCHARGED IN STABLE CONDITION. ID BANDS REMOVED. PT REFUSED TO SIGNS DISCHARGED PAPERS; COMPUTER AIDED DESIGN OPERATOR ROY AWARE.
== END 2017-02-06 20:45 | DRG 221 ==
LOC: MED 09:13 → MTU 13:39
PROVIDERS: ADMIT Family Medicine; ATTEND Family Medicine
PROC: 0DBL8ZZ Excision of Transverse Colon, Via Natural or Artificial Opening Endoscopic (ICD-10-PCS; 2017-01-27)
PROC: 0DSN8ZZ Reposition Sigmoid Colon, Via Natural or Artificial Opening Endoscopic (ICD-10-PCS; 2017-01-27 17:00)
PROC: 0DJD8ZZ Inspection of Lower Intestinal Tract, Via Natural or Artificial Opening Endoscopic (ICD-10-PCS; 2017-01-28)
PROC: 30233R1 Transfusion of Nonautologous Platelets into Peripheral Vein, Percutaneous Approach (ICD-10-PCS; 2017-01-29)
PROC: 0DTN0ZZ Resection of Sigmoid Colon, Open Approach (ICD-10-PCS; principal; 2017-01-29 14:30)
DX: K56.2 Volvulus (principal); N17.0 Acute kidney failure with tubular necrosis; E87.8 Other disorders of electrolyte and fluid balance, not elsewhere classified; E87.1 Hypo-osmolality and hyponatremia; D69.6 Thrombocytopenia, unspecified; K74.60 Unspecified cirrhosis of liver; N39.0 Urinary tract infection, site not specified; K80.20 Calculus of gallbladder without cholecystitis without obstruction; E87.6 Hypokalemia; E83.51 Hypocalcemia; D12.3 Benign neoplasm of transverse colon; E11.9 Type 2 diabetes mellitus without complications; B37.49 Other urogenital candidiasis; M43.17 Spondylolisthesis, lumbosacral region; E80.6 Other disorders of bilirubin metabolism; Z99.3 Dependence on wheelchair; Z79.899 Other long term (current) drug therapy; Z86.73 Personal history of transient ischemic attack (TIA), and cerebral infarction without residual deficits
CPT/HCPCS: 36415; 71010; 74000; 74270; 74280; 76536; 76705; 76770; 80048; 80053; 80305; 81001; 82150; 82948; 83036; 83605; 83690; 83735; 83880; 84100; 84439; 84443; 85025; 85610; 85730; 86886; 86900; 86901; 87040; 87081; 87086; 87186; 88305; 88307; 93005; 96361; 96374; 97110; 97116; 97140; 97530; 99285; C1758; J0295; J0330; J1100; J1170; J1644; J2250; J2270; J2405; J2704; J3010; J3490; J7030; P9035; Q0092